=== PATIENT | female | born 2000 | race Two or more races ===

== ENCOUNTER 2025-05-22 12:43 | Emergency (ER) | payer SELFPAY ==
[2025-05-22] MEDS ORDERED: Amoxicillin/Clavulanate K 875-125 MG Tab PO ONE (13:26)
== END 2025-05-22 13:35 | disposition home or self-care (01) ==
LOC: JD.ED 12:43
DX: O99.891 Other specified diseases and conditions complicating pregnancy (principal); H66.92 Otitis media, unspecified, left ear; Z3A.01 Less than 8 weeks gestation of pregnancy
CPT/HCPCS: 99283